=== PATIENT | male | born 1970 | race Two or more races ===

== ENCOUNTER 2023-04-19 13:50 | Inpatient (IN) | payer SELFPAY ==
[~2023-04-19] VITALS: Ht 165.1 cm; Wt 67.4 kg
[2023-04-19 14:14] LABS: Basophils # (auto) 0.1 10 ^3/uL (0-0.2); Basophils % (auto) 1.2 % (0.0-2.0); Eosinophils # (auto) 0.9 10 ^3/uL (0-0.8); Eosinophils % (auto) 7.8 % (0.0-7.0); Hematocrit 46.2 % (41.0-53.0); Hemoglobin 15.2 g/dL (13.5-17.5); Lymphocytes # (auto) 3.5 10 ^3/uL (0.4-5.4); Mean Corpuscular Hemoglobin 28.2 pg (28.0-32.0); Mean Corpuscular Hgb Conc. 32.9 g/dL (32.0-36.0); Mean Corpuscular Volume 85.6 fL (80.0-100.0); Monocytes # (auto) 1.1 10 ^3/uL (0-1.3); Monocytes % (auto) 9.8 % (0.0-12.0); Neutrophils # (auto) 5.7 10 ^3/uL (1.6-8.6); Neutrophils % (auto) 50.2 % (37.0-80.0); Red Cell Distribution Width 14.4 % (11.8-14.3); White Blood Cell 11.3 10^3/uL (4.4-10.8)
[2023-04-19 14:35] LABS: Alanine Aminotransferase 38 U/L (7-40); Albumin 4.4 g/dL (3.2-4.8); Alkaline Phosphatase 117 U/L (46-116); Anion Gap 4 (5-15); Aspartate Aminotransferase 13 U/L (13-40); BUN/Creatinine Ratio 10.7 (10.0-20.0); Blood Urea Nitrogen 9 mg/dL (9-23); Calcium 9.3 mg/dL (8.7-10.4); Carbon Dioxide 29 mmol/L (20-30); Chloride 101 mmol/L (98-107); Glucose 211 mg/dL (74-106); Potassium 4.4 mmol/L (3.5-5.1); Sodium 134 mmol/L (136-145)
[2023-04-19 14:36] LABS: Bilirubin, Total 0.4 mg/dL (0.2-1.0); Total Protein 7.5 g/dL (5.7-8.2)
[2023-04-19] MEDS ORDERED: AZIT1POW PO (15:39)
[2023-04-19] MEDS ORDERED: METH4PAK PO (15:39)
[2023-04-19] MEDS ORDERED: ACETAMINOPHEN 325 MG TAB PO ONE (19:00)
[2023-04-19] MEDS ORDERED: SODIUM CHLORIDE 0.9% 1,000 ML IV ONE (19:00)
[2023-04-19] MEDS ORDERED: cefTRIAXone 1GM/50ML D5W 50 ML IV ONE (19:00)
[2023-04-19] MEDS ORDERED: ACETAMINOPHEN 325 MG TAB PO PRN (19:45)
[2023-04-19] MEDS ORDERED: MORPHINE SULFATE INJ 2 MG/ml SYRG IV PRN (19:45)
[2023-04-19] MEDS ORDERED: DEXTROSE (50%) 50ML SYRG IV PRN (19:45)
[2023-04-19] MEDS ORDERED: NITROGLYCERIN 0.4 MG SL TAB SL PRN (19:45)
[2023-04-19 20:46] VITALS: BP 107/71; PULSE 98; RESP 18; TEMP 100.3; O2SAT 98
[2023-04-19] MEDS: NYSTATIN (MOUTH-THROAT) 500,000 UNITS/5 ML SUSP MT SCH (22:59)
[2023-04-19] MEDS: IBUPROFEN 600 MG TAB PO PRN (23:00)
[2023-04-19] MEDS: ACCU-CHEK COMFORT CURVE STRIP VI SCH (23:15)
[2023-04-19] MEDS: InsuLIN REG 1unit/0.01ml Soln (100units/ml) SC SCH (23:19)
[2023-04-19 23:29] VITALS: O2SAT 98
[2023-04-20] VITALS (10 sets, daily range): BP systolic 103; BP diastolic 59; PULSE 64–94; RESP 16–20; TEMP 37.1; O2SAT 94–100
[2023-04-20] MEDS: NYSTATIN (MOUTH-THROAT) 500,000 UNITS/5 ML SUSP MT SCH ×4 (06:08→22:28)
[2023-04-20] MEDS: IPRATROPIUM BROM 0.5 MG/2.5ML INH SOL NEB SCH ×2 (06:54→12:42)
[2023-04-20] MEDS: ALBUTEROL SULF 2.5 MG/0.5ML(0.5%) NEB SOLN NEB SCH ×2 (06:54→12:42)
[2023-04-20 06:57] LABS: Basophils # (auto) 0.1 10 ^3/uL (0-0.2); Basophils % (auto) 1.4 % (0.0-2.0); Eosinophils # (auto) 0.8 10 ^3/uL (0-0.8); Eosinophils % (auto) 10.1 % (0.0-7.0); Hematocrit 41.7 % (41.0-53.0); Hemoglobin 13.8 g/dL (13.5-17.5); Lymphocytes # (auto) 2.7 10 ^3/uL (0.4-5.4); Lymphocytes % (auto) 35.3 % (10.0-50.0); Mean Corpuscular Hemoglobin 28.1 pg (28.0-32.0); Mean Corpuscular Hgb Conc. 33.1 g/dL (32.0-36.0); Monocytes # (auto) 0.9 10 ^3/uL (0-1.3); Monocytes % (auto) 11.3 % (0.0-12.0); Neutrophils # (auto) 3.3 10 ^3/uL (1.6-8.6); Neutrophils % (auto) 41.9 % (37.0-80.0); Nucleated Red Blood Cells % 0.1 %; Red Blood Cells 4.91 10^6/uL (4.5-5.90); Red Cell Distribution Width 14.1 % (11.8-14.3); White Blood Cell 7.8 10^3/uL (4.4-10.8)
[2023-04-20 07:04] LABS: Alanine Aminotransferase 66 U/L (7-40); Albumin 4.2 g/dL (3.2-4.8); Alkaline Phosphatase 106 U/L (46-116); Anion Gap 7 (5-15); Aspartate Aminotransferase 49 U/L (13-40); BUN/Creatinine Ratio 14.1 (10.0-20.0); Blood Urea Nitrogen 11 mg/dL (9-23); Calcium 9.2 mg/dL (8.5-10.1); Carbon Dioxide 25 mmol/L (20-30); Chloride 104 mmol/L (98-107); Glucose 239 mg/dL (74-106); Potassium 4.1 mmol/L (3.5-5.1); Sodium 136 mmol/L (136-145)
[2023-04-20] MEDS: ACCU-CHEK COMFORT CURVE STRIP VI SCH ×4 (07:04→22:16)
[2023-04-20 07:05] LABS: Bilirubin, Total 0.4 mg/dL (0.2-1.0); Total Protein 7.4 g/dL (5.7-8.2)
[2023-04-20] MEDS: InsuLIN REG 1unit/0.01ml Soln (100units/ml) SC SCH ×4 (07:14→22:22)
[2023-04-20] MEDS ORDERED: ONDANSETRON HCL 4 MG/2 ML VIAL IV PRN ×2 (09:15→14:15)
[2023-04-20] MEDS: cefTRIAXone 1GM/50ML D5W 50 ML IV SCH (09:21)
[2023-04-20 11:07] LABS: INR 0.99 (0.9-1.15); Partial Thromboplastin Time 29.1 SEC (24.5-34.5); Prothrombin Time 10.4 sec (9.3-11.8)
[2023-04-20 11:27] LABS: Rapid Strep A Screen-Throat Negative
[2023-04-20 11:50] LABS: Urine Bacteria NONE SEEN /hpf (None Seen); Urine Blood Negative /uL (Negative); Urine Clarity Clear (Clear); Urine Color Colorless (Yellow); Urine Protein, UAD Negative (Negative); Urine Specific Gravity 1.008 (1.001-1.035); Urine Urobilinogen Normal (Negative); Urine WBC <1 /hpf (0 - 3); Urine pH 6.5 (5.0-8.0)
[2023-04-20] MEDS ORDERED: ALBUTEROL MEDNEB 2.5 mg/3ml NEB ONE (12:40)
[2023-04-20] MEDS ORDERED: MORPHINE SULFATE INJ 2 MG/ml SYRG IV PRN (14:15)
[2023-04-20] MEDS ORDERED: ALBUTEROL MEDNEB 2.5 mg/3ml NEB NEB SCH (18:00)
[2023-04-20] MEDS ORDERED: IPRATROPIUM BROM 0.5 MG/2.5ML INH SOL NEB SCH (18:00)
[2023-04-20] MEDS: BUDESONIDE (INHALATION) 0.5 MG/2 ML NEB NEB SCH (18:19)
[2023-04-20] MEDS: ACETAMINOPHEN 500 MG TAB PO PRN (20:10)
[2023-04-20 21:11] LABS: Rapid Influenza A Negative (Negative); Rapid Influenza B Negative (Negative)
[2023-04-20] MEDS: IBUPROFEN 600 MG TAB PO PRN (21:17)
[2023-04-20] MEDS: HYDROcodone-ACET 5/325MG TAB PO PRN (23:24)
[2023-04-21] VITALS (11 sets, daily range): BP systolic 106–123; BP diastolic 68–81; PULSE 55–83; RESP 16–19; TEMP 97.5–98.8; O2SAT 95–100
[2023-04-21] MEDS: IPRATROPIUM BROM 0.5 MG/2.5ML INH SOL NEB PRN ×2 (06:12→18:08)
[2023-04-21] MEDS: BUDESONIDE (INHALATION) 0.5 MG/2 ML NEB NEB SCH ×2 (06:12→18:08)
[2023-04-21] MEDS: ALBUTEROL MEDNEB 2.5 mg/3ml NEB NEB PRN ×2 (06:12→18:09)
[2023-04-21] MEDS: ACCU-CHEK COMFORT CURVE STRIP VI SCH ×4 (06:44→22:09)
[2023-04-21] MEDS: NYSTATIN (MOUTH-THROAT) 500,000 UNITS/5 ML SUSP MT SCH ×4 (06:44→22:09)
[2023-04-21] MEDS: InsuLIN REG 1unit/0.01ml Soln (100units/ml) SC SCH ×4 (06:47→22:06)
[2023-04-21] MEDS: cefTRIAXone 1GM/50ML D5W 50 ML IV SCH (08:40)
[2023-04-21] MEDS ORDERED: AZITHROMYCIN 500MG/ 250ML 250 ML IV SCH (10:00)
[2023-04-21] MEDS: levoFLOXacin 500MG 100 ML IV SCH (12:17)
[2023-04-21] MEDS: HYDROcodone-ACET 5/325MG TAB PO PRN (20:08)
[2023-04-22] VITALS (12 sets, daily range): BP systolic 100–114; BP diastolic 69–81; PULSE 58–83; RESP 16–18; TEMP 98.3–99.5; O2SAT 95–100
[2023-04-22] MEDS: ACETAMINOPHEN 500 MG TAB PO PRN (04:50)
[2023-04-22] MEDS: InsuLIN REG 1unit/0.01ml Soln (100units/ml) SC SCH ×4 (06:44→21:48)
[2023-04-22] MEDS: ACCU-CHEK COMFORT CURVE STRIP VI SCH ×4 (06:44→21:47)
[2023-04-22] MEDS: NYSTATIN (MOUTH-THROAT) 500,000 UNITS/5 ML SUSP MT SCH ×4 (06:47→21:47)
[2023-04-22] MEDS: IPRATROPIUM BROM 0.5 MG/2.5ML INH SOL NEB PRN ×2 (07:02→18:56)
[2023-04-22] MEDS: BUDESONIDE (INHALATION) 0.5 MG/2 ML NEB NEB SCH ×2 (07:02→18:57)
[2023-04-22] MEDS: ALBUTEROL MEDNEB 2.5 mg/3ml NEB NEB PRN ×2 (07:02→18:56)
[2023-04-22] MEDS: cefTRIAXone 1GM/50ML D5W 50 ML IV SCH (08:28)
[2023-04-22] MEDS: levoFLOXacin 500MG 100 ML IV SCH (08:28)
[2023-04-22] MEDS: DOCUSATE SOD 100 MG CAP PO PRN (14:59)
[2023-04-22] MEDS: HYDROcodone-ACET 5/325MG TAB PO PRN (19:40)
[2023-04-23] VITALS (13 sets, daily range): BP systolic 100–128; BP diastolic 63–79; PULSE 63–84; RESP 16–19; TEMP 98–98.7; O2SAT 95–100
[2023-04-23] MEDS: ACCU-CHEK COMFORT CURVE STRIP VI SCH ×4 (06:15→21:16)
[2023-04-23] MEDS: NYSTATIN (MOUTH-THROAT) 500,000 UNITS/5 ML SUSP MT SCH ×4 (06:15→21:15)
[2023-04-23] MEDS: InsuLIN REG 1unit/0.01ml Soln (100units/ml) SC SCH ×4 (06:16→21:23)
[2023-04-23] MEDS: IPRATROPIUM BROM 0.5 MG/2.5ML INH SOL NEB PRN ×2 (07:00→17:43)
[2023-04-23] MEDS: ALBUTEROL MEDNEB 2.5 mg/3ml NEB NEB PRN ×2 (07:00→17:43)
[2023-04-23] MEDS: BUDESONIDE (INHALATION) 0.5 MG/2 ML NEB NEB SCH ×2 (07:01→17:43)
[2023-04-23] MEDS: cefTRIAXone 1GM/50ML D5W 50 ML IV SCH (09:09)
[2023-04-23] MEDS: levoFLOXacin 500MG 100 ML IV SCH (10:05)
[2023-04-23] MEDS: ACETAMINOPHEN 500 MG TAB PO PRN (10:27)
[2023-04-23] MEDS: DOCUSATE SOD 100 MG CAP PO PRN (17:13)
[2023-04-24] VITALS (11 sets, daily range): BP systolic 99–108; BP diastolic 67–82; PULSE 58–76; RESP 14–18; TEMP 97.8–98.8; O2SAT 95–100
[2023-04-24] MEDS: HYDROcodone-ACET 5/325MG TAB PO PRN ×3 (05:45→21:21)
[2023-04-24] MEDS: NYSTATIN (MOUTH-THROAT) 500,000 UNITS/5 ML SUSP MT SCH ×4 (05:45→21:21)
[2023-04-24 06:01] LABS: Basophils # (auto) 0.1 10 ^3/uL (0-0.2); Basophils % (auto) 1.1 % (0.0-2.0); Eosinophils # (auto) 0.9 10 ^3/uL (0-0.8); Hematocrit 42.3 % (41.0-53.0); Hemoglobin 13.9 g/dL (13.5-17.5); Lymphocytes % (auto) 36.6 % (10.0-50.0); Mean Corpuscular Hgb Conc. 32.9 g/dL (32.0-36.0); Monocytes # (auto) 0.8 10 ^3/uL (0-1.3); Monocytes % (auto) 9.8 % (0.0-12.0); Neutrophils # (auto) 3.4 10 ^3/uL (1.6-8.6); Neutrophils % (auto) 41.5 % (37.0-80.0); Nucleated Red Blood Cells % 0.3 %; Red Blood Cells 4.97 10^6/uL (4.5-5.90); Red Cell Distribution Width 14.3 % (11.8-14.3); White Blood Cell 8.1 10^3/uL (4.4-10.8)
[2023-04-24] MEDS: InsuLIN REG 1unit/0.01ml Soln (100units/ml) SC SCH ×4 (06:13→21:22)
[2023-04-24] MEDS: ACCU-CHEK COMFORT CURVE STRIP VI SCH ×4 (06:13→21:21)
[2023-04-24 06:31] LABS: Anion Gap 6 (5-15); Carbon Dioxide 25 mmol/L (20-30); Chloride 106 mmol/L (98-107); Potassium 4.1 mmol/L (3.5-5.1); Sodium 137 mmol/L (136-145)
[2023-04-24 06:37] LABS: BUN/Creatinine Ratio 12.2 (10.0-20.0); Blood Urea Nitrogen 11 mg/dL (9-23); Glucose 145 mg/dL (74-106)
[2023-04-24] MEDS: levoFLOXacin 750MG 150 ML IV SCH (09:34)
[2023-04-24] MEDS: ALBUTEROL MEDNEB 2.5 mg/3ml NEB NEB PRN (10:08)
[2023-04-24] MEDS: BUDESONIDE (INHALATION) 0.5 MG/2 ML NEB NEB SCH ×2 (10:08→19:50)
[2023-04-24] MEDS: IPRATROPIUM BROM 0.5 MG/2.5ML INH SOL NEB PRN (10:08)
[2023-04-25] VITALS (13 sets, daily range): BP systolic 104–117; BP diastolic 62–79; PULSE 56–78; RESP 14–22; TEMP 98–98.5; O2SAT 94–100
[2023-04-25] MEDS: NYSTATIN (MOUTH-THROAT) 500,000 UNITS/5 ML SUSP MT SCH ×4 (06:22→22:23)
[2023-04-25] MEDS: ACCU-CHEK COMFORT CURVE STRIP VI SCH ×4 (06:22→23:46)
[2023-04-25] MEDS: InsuLIN REG 1unit/0.01ml Soln (100units/ml) SC SCH ×4 (06:23→23:47)
[2023-04-25] MEDS: BUDESONIDE (INHALATION) 0.5 MG/2 ML NEB NEB SCH ×2 (06:45→22:29)
[2023-04-25] MEDS: HYDROcodone-ACET 5/325MG TAB PO PRN (07:28)
[2023-04-25] MEDS: levoFLOXacin 750MG 150 ML IV SCH (09:17)
[2023-04-25] MEDS: cefTAZidime 1 GM in SODIUM CHL 0.9% 50 ML IV SCH ×2 (15:20→22:24)
[2023-04-25] MEDS: DOCUSATE SOD 100 MG CAP PO PRN (22:24)
[2023-04-25] MEDS: IBUPROFEN 600 MG TAB PO PRN (22:24)
[2023-04-26] MEDS: NYSTATIN (MOUTH-THROAT) 500,000 UNITS/5 ML SUSP MT SCH (06:41)
[2023-04-26] MEDS: cefTAZidime 1 GM in SODIUM CHL 0.9% 50 ML IV SCH (06:41)
[2023-04-26] MEDS: ACCU-CHEK COMFORT CURVE STRIP VI SCH (06:42)
[2023-04-26] MEDS: IPRATROPIUM BROM 0.5 MG/2.5ML INH SOL NEB PRN (07:02)
[2023-04-26 07:03] VITALS: PULSE 57; RESP 16; O2SAT 95
[2023-04-26] MEDS: ALBUTEROL MEDNEB 2.5 mg/3ml NEB NEB PRN (07:03)
[2023-04-26] MEDS: BUDESONIDE (INHALATION) 0.5 MG/2 ML NEB NEB SCH (07:03)
[2023-04-26 07:11] VITALS: PULSE 52; RESP 18; O2SAT 100
[2023-04-26 08:12] VITALS: PULSE 74; RESP 18; O2SAT 96
[2023-04-26] MEDS: InsuLIN REG 1unit/0.01ml Soln (100units/ml) SC SCH (08:32)
[2023-04-26 08:51] VITALS: BP 107/62; PULSE 62; RESP 18; TEMP 97.4; O2SAT 96
[2023-04-26 10:00] VITALS: O2SAT 98
[2023-04-26] MEDS ORDERED: BACDST PO (10:59)
== END 2023-04-26 11:45 | disposition home or self-care (01) | DRG 871 ==
LOC: ER 13:50 → TELE 19:53 → EAST 04-20 21:33
PROVIDERS: ADMIT Nurse Practitioner Family; ATTEND Nurse Practitioner Acute Care
DX: A41.54 Sepsis due to Acinetobacter baumannii (principal); J15.69 Pneumonia due to other Gram-negative bacteria; J96.01 Acute respiratory failure with hypoxia; B37.0 Candidal stomatitis; E11.9 Type 2 diabetes mellitus without complications; E78.00 Pure hypercholesterolemia, unspecified; Z20.822 Contact with and (suspected) exposure to COVID-19; I10 Essential (primary) hypertension; Z88.0 Allergy status to penicillin; Z80.9 Family history of malignant neoplasm, unspecified; Z88.1 Allergy status to other antibiotic agents
CPT/HCPCS: 36415; 71045; 71250; 80048; 80053; 81001; 82962; 83036; 83605; 83735; 83880; 84484; 85025; 85610; 85730; 86606; 86612; 86635; 86698; 86703; 87040; 87070; 87077; 87186; 87804; 87880; 93005; 94640; 96365; G0378; J0696; J1815; J1956; J2405